=== PATIENT | female | born 1985 | race Caucasian/White ===

== ENCOUNTER 2018-01-21 15:00 | Emergency (ER) | payer MEDICAID ==
[~2018-01-21] VITALS: Ht 172.7 cm; Wt 83.9 kg
[~2018-01-21 15:00] MED LIST: ONDANSETRON HCL 8 MG TABLET; RA PRENATAL TABLET
[2018-01-21] MEDS ORDERED: LORazepam 0.5 MG TAB PO ONE (15:15)
[2018-01-21] MEDS ORDERED: cloNIDine HCL 0.1 MG TAB PO ONE (15:15)
[2018-01-21] MEDS ORDERED: cloNIDine HCL 0.1 MG TAB ONE (15:18)
[2018-01-21 15:54] VITALS: BP 152/92
== END 2018-01-21 16:01 ==
LOC: ER 15:00 → EDBD 15:00 → ER 15:58
DX: I10 Essential (primary) hypertension (principal); F17.200 Nicotine dependence, unspecified, uncomplicated

== ENCOUNTER 2018-02-15 10:44 | Emergency (ER) | payer MEDICAID ==
[~2018-02-15] VITALS: Ht 172.7 cm; Wt 90.7 kg
[2018-02-15 11:05] VITALS: BP 119/67
[2018-02-15] MEDS ORDERED: KETOROLAC TROMETH 60MG/2ML VIAL IM ONE (12:00)
== END 2018-02-15 13:32 | disposition home or self-care (01) ==
LOC: ER 10:44
DX: S22.31XA Fracture of one rib, right side, initial encounter for closed fracture (principal); I10 Essential (primary) hypertension; F17.200 Nicotine dependence, unspecified, uncomplicated; Z48.02 Encounter for removal of sutures; X50.0XXA Overexertion from strenuous movement or load, initial encounter; Y93.89 Activity, other specified; Y92.89 Other specified places as the place of occurrence of the external cause; Y99.8 Other external cause status
CPT/HCPCS: 71101; 96372; 99284; J1885